=== PATIENT | male | born 1990 | race Caucasian/White ===

== ENCOUNTER 2016-07-15 09:14 | Emergency (ER) | payer SELFPAY ==
--- NOTE | 2016-07-15 09:53 | EDPHY ---
H & P Time Seen by Provider: 07/15/16 09:32 HPI/ROS: CHIEF COMPLAINT: Left rib pain HISTORY OF PRESENT ILLNESS: 26-year-old male presents to the emergency department complaining of severe pain in his left anterior rib. The patient was long boarding on Thursday, 3 days ago and fell injuring his left shoulder and his left chest. He did not hit his head or lose consciousness. He does admit to drinking alcohol. He was not wearing a helmet. He has no headache. No neck or back pain. He denies pain in his upper or lower extremities. He denies any abdominal pain, specifically denies any left upper quadrant abdominal pain. His appetite has been normal. He presents now to the emergency department 3 days later since he was able to find a ride and still has continued ongoing pain. Feels short of breath. He has pain especially when he takes a big deep breath. Denies injury to his lower extremities or his right upper extremity. REVIEW OF SYSTEMS: Constitutional: No fever, no chills. Eyes: No double or blurry vision. ENT: No sore throat. Respiratory: Chest wall pain or shortness of breath as above. No cough. Cardiac: No chest pain. Gastrointestinal: No abdominal pain, vomiting or diarrhea. Genitourinary: No dysuria. Musculoskeletal: No neck or back pain. Skin: No rashes. Neurological: No headache. Past Medical/Surgical History: Orthopedic injuries, surgery right arm Social History: From [place] Smoking Status: Never smoked Physical Exam: General Appearance: Alert, no distress. No visible signs of trauma to his head. He is mentating normally and answering questions appropriately. Eyes: Pupils equal and round. Extraocular motions are all intact. ENT: Mouth: Mucous membranes moist. Respiratory: No wheezing, rhonchi, or rales, lungs are clear to auscultation. Reproducible pain with palpation to the left anterior aspect of the chest just below the left breast. Cardiovascular: Regular rate and rhythm. Gastrointestinal: Abdomen is soft and nontender, no masses, no rebound or guarding, bowel sounds normal. Specifically no tenderness with palpation in the left upper quadrant. No CVA tenderness bilaterally. Neurological: Alert and oriented x 3, cranial nerves II through XII grossly intact Skin: Warm and dry, no rashes. Musculoskeletal: Nontender to palpate along the cervical, thoracic or lumbar spine. Neck is supple. Extremities: Full range of motion and no peripheral edema. Psychiatric: Patient is oriented X 3, there is no agitation. Constitutional: Initial Vital Signs Temperature (C) 36.9 C 07/15/16 09:15 Heart Rate 78 07/15/16 09:15 Respiratory Rate 18 07/15/16 09:15 Blood Pressure 126/67 H 07/15/16 09:15 O2 Sat (%) 96 07/15/16 09:15 O2 Delivery Mode Room Air Allergies/Adverse Reactions: No Known Allergies Allergy (Unverified 07/15/16 09:15) Home Medications: Medication Instructions Recorded NK [No Known Home Meds] 07/15/16 Medical Decision Making - Diagnostics Imaging: Imaging Impressions Chest X-Ray 07/15/16 10:03 Impression: Normal. Chest x-ray was reviewed by myself in the PAC system and revealed no evidence of obvious rib fracture or evidence of pneumothorax. ED Course/Re-evaluation: 26-year-old male presents to the emergency department after falling off his long board 3 days ago and now has left anterior rib pain. Patient has no abdominal pain. On examination he has no pain with palpation in the left upper quadrant. I do not think he has a spleen injury. He has a normal appetite. He has no pain in the abdomen with palpation anywhere. The patient has reproducible pain with palpation to the left anterior aspect of the chest. There is no palpable crepitus or other bony abnormality. Chest x- ray has been ordered and is pending. Chest x-rays unremarkable. The patient was told to return if he developed acute shortness of breath, worsening pain, or if he felt worse in any way. He was comfortable with this plan. He was given primary care referral. Patient was encouraged to take deep breaths. Differential Diagnosis: Including but not limited to rib fracture, pneumothorax, intra-abdominal injury , contusion Departure - Departure Disposition: Home, Routine, Self-Care Clinical Impression: Chest wall contusion Qualifiers: Encounter type: initial encounter Laterality: left Qualified Code(s): S20.212A - Contusion of left front wall of thorax, initial encounter Condition: Good Instructions: Contusion in Adults (ED), Chest Wall Pain (ED) Additional Instructions: You should take deep breaths to help keep your lungs inflated. Return to the emergency department if you feel acutely short of breath, if you develop worsening pain, or if you feel worse in any way. Ibuprofen 600 mg every 8 hours as needed for pain. Activity as tolerated. However you should avoid lifting or pushing more than 5 lb until your pain has resolved. Referrals: Alexis Brito, [Doctor of Osteopathy] - 2-3 days, if not improved (Primary care provider [employer] worker)
[2016-07-15 10:34] VITALS: BP 129/67; PULSE 82; RESP 20; TEMP 98.6; O2SAT 95
== END 2016-07-15 10:36 | disposition home or self-care (01) ==
DX: S20.212A Contusion of left front wall of thorax, initial encounter (principal); V00.131A Fall from skateboard, initial encounter; Y93.51 Activity, roller skating (inline) and skateboarding